=== PATIENT | male | born 1995 | race Caucasian/White ===

== ENCOUNTER 2017-04-07 17:19 | Emergency (ER) | payer BC ==
[~2017-04-07] VITALS: Ht 185.4 cm; Wt 120.0 kg
[2017-04-07] MEDS ORDERED: LORAZEPAM 2 MG/ML 1 ML VIAL IM STA ×2 (17:32→19:14)
[2017-04-07] MEDS ORDERED: HALOPERIDOL LACTATE 5 MG/ML 1 ML VIAL IM STA ×2 (17:32→19:13)
[2017-04-07 17:46] VITALS: Ht 185.4 cm; Wt 120.0 kg
[2017-04-07 18:37] VITALS: O2SAT 95
[2017-04-07 19:17] LABS: CALCIUM 9.1 mg/dl (8.5-10.1); CREATININE 0.92 mg/dl (0.60-1.40); POTASSIUM 3.8 mmol/L (3.5-5.1)
--- NOTE | 2017-04-07 21:00 | EMERGENCY ROOM VISIT NOTE ---
History Report prepared by Vasquezibvalerie: Gonzales Hu Under the Supervision of: Dr. Willam Booth M.D. First contact with patient: 17:21 Chief Complaint: ALCOHOL OVERDOSE Stated Complaint: ETOH History of Present Illness The patient is a 21 year old male who presents to the Emergency Room due to suspected alcohol intoxication that started this afternoon. The patient reports he has been drinking alcohol today. Per police, the patient was stumbling downtown near the [place]. They report that when they approached the patient, he started to become combative. The police report that the patient's PBT was 264. They handcuffed the patient and brought him to the ED by EMS. The police state that the patient was sleeping on the way to the ED, but became aggressive when he woke up and needed to be restrained. The patient denies any allergies, taking medications, and any medical problems. The HPI is limited due to alcohol intoxication. Source of History: patient, police Onset: this afternoon Position: other (global) Quality: other (global) Timing: constant Review of Systems ROS limited secondary to alcohol intoxication. Past Medical & Surgical Medical Problems: (1) No active medical problems (2) No known allergies Family History No significant family history Social History Smoking Status: Never Smoker Drug Use: none Marital Status: single Housing Status: unknown Occupation Status: student Allergies Coded Allergies: No Known Allergies (Unverified , 10/21/14) Physical Exam Vital Signs Date Time Temp Pulse Resp B/P (MAP) Pulse Ox O2 Delivery O2 Flow Rate FiO2 04/07/17 22:34 90 20 104/71 95 Room Air 04/07/17 20:40 108 20 128/70 95 04/07/17 18:37 95 Room Air 04/07/17 18:33 136 28 145/71 93 Room Air 04/07/17 18:00 112 04/07/17 17:46 139 28 126/112 93 Room Air Physical Exam GENERAL: Well developed. Well nourished. Severely intoxicated, violent, belligerent, cursing HENT: Normocephalic, atraumatic. Oropharynx unremarkable. EYES: PERRL. Erythematous conjunctiva. Sclera non-icteric. NECK: Supple. No nuchal rigidity. FROM. No masses. RESPIRATORY: CTA. Breath sounds equal. No wheezes. CARDIAC: Tachycardic rate. Normal rhythm. No murmurs. No rubs. GI/ABDOMEN: Soft, non distended. No tenderness to palpation. No rebound or guarding. No masses. RECTAL: Deferred. MUSCULOSKELETAL: No edema. No discoloration. Gross motor strength 5/5 bilaterally. NEURO: Altered sensorium. No sensory or motor deficits noted. Speech slurred. SKIN: No rash or jaundice noted. LYMPH: No adenopathy. Medical Decision & Procedures Laboratory Results 04/07/17 18:40 Test 04/07/17 18:40 Anion Gap 11.0 mmol/L (3-11) Est Creatinine Clear Calc Drug Dose 172.3 ml/min Estimated GFR () 137.3 Estimated GFR (Non- 118.5 BUN/Creatinine Ratio 10.8 (10-20) Calcium Level 9.1 mg/dl (8.5-10.1) Ethyl Alcohol mg/dL 233.9 mg/dl (0-3) Laboratory results reviewed by me Medications Administered Medications (Trade) Dose Ordered Sig/Checo Route Start Time Stop Time Status Last Admin Dose Admin Haloperidol Lactate (Haldol Inj) 5 mg NOW STAT IM 04/07/17 17:32 04/07/17 17:33 DC 04/07/17 17:59 5 MG Lorazepam (Ativan Inj) 1 mg NOW STAT IM 04/07/17 17:32 04/07/17 17:33 DC 04/07/17 17:59 1 MG ED Course 0: The patient was evaluated in room A08. A complete history and physical exam was performed. 1731: Ordered Ativan Injection 1 mg IM, Haldol Injection 5 mg IM. 1817: I reevaluated the patient and he is resting comfortably and he is calm. We attempted to discontinue his restraints however the patient became agitated again. 1912: I reevaluated the patient and he is agitated again. Ordered additional Haldol and although this was not administered as the patient fell asleep. This was counseled. 1923: I reevaluated the patient and he is sleeping. 2033: I reevaluated the patient and he is stable and resting. DC restraints. 2141: I reevaluated the patient and he is stable. He just went to the bathroom. 2229: I reevaluated the patient and he woke up. His intoxication is clearing up. He does not remember any altercation with the police. Discussed results and discharge instructions: He verbalized understanding and agreement. The patient is ready for discharge. Medical Decision Prior records/ancillary studies reviewed. Triage Nursing notes reviewed and agree them. Additional history obtained from EMS. The patient's history was concerning for altered mental status and a possible alcohol overdose. Differential diagnosis: Etiologies such as toxicologic, infection, hypoglycemia, electrolyte abnormalities, cardiac sources, intracerebral event, neurologic, as well as others were entertained. Physical examination: As above ER treatment provided: Monitoring Aspiration precautions Physical chemicals restraints. Haldol 5 mg, Ativan 1 mg IM. The patient was frequently reassessed. Diagnostic interpretation by me: Cardiac monitoring did not reveal any evidence of dysrhythmia. The labs revealed normal chemistries. The patient's blood alcohol level was 234 mg/dL. Imaging studies: Deferred The patient's history was reviewed once they were more coherent and their intoxication cleared. The patient states they have been in good health recently and had no medical complaints. No additional concerning findings were noted. The patient complained of no symptoms to suggest assault prior to his interaction with police and EMS. He has no complaints at the moment. The [facility] police were contacted as they requested to be notified upon medical clearance and discharge. They presented to the Emergency Room to assume custody of the patient. This appears to be related to an isolated overdose of alcohol. By the evaluation outlined above emergent etiologies such as trauma, infection , hypoglycemia, electrolyte abnormalities, cardiac sources, intracerebral event , neurologic,as well as others were deemed relatively unlikely. The patient was informed about the findings as listed above. All questions were answered and the patient was pleased with the treatment. Return instructions were outlined and the patient was discharged in stable condition once their mental status improved and a safe destination was confirmed. Outpatient prescription management: None Referral: The patient was referred back to their primary care physician for follow-up in 2 to 3 days for a recheck of their current condition. Medication Reconcilliation Current Medication List: was personally reviewed by me Blood Pressure Screening Patient's blood pressure: Normal blood pressure Impression Primary Impression: Alcohol use with intoxication Scribe Attestation The scribe's documentation has been prepared under my direction and personally reviewed by me in its entirety. I confirm that the note above accurately reflects all work, treatment, procedures, and medical decision making performed by me. Departure Information Dispostion Home / Self-Care Referrals [facility] (PCP) Forms HOME CARE DOCUMENTATION FORM, IMPORTANT VISIT INFORMATION Patient Instructions Alcohol Abuse - [facility], Alcohol Intoxication - [facility], [facility]: [employer] Students and Alcohol Related Visits, My [facility] Additional Instructions Your blood alcohol level was 234 mg/dL. For reference the legal driving limit is 80 mg/dL. Do not drive or work for 24 hours. Ibuprofen may be used for headache. Eat a healthy diet and drink plenty of fluids. Consume alcohol only in moderation. Return to the emergency department for fevers, vomiting, abdominal pain, chest pain, passing out, or as needed. Follow-up with your primary care physician in 2 to 3 days for a recheck of your current condition.
[2017-04-07 23:24] VITALS: BP 104/71; PULSE 90; O2SAT 95
== END 2017-04-07 23:27 | disposition home or self-care (01) ==
LOC: EDUNIT# 17:19 → C.EDA 17:22
DX: F10.129 Alcohol abuse with intoxication, unspecified (principal); Y90.7 Blood alcohol level of 200-239 mg/100 ml